=== PATIENT | male | born 1980 | race Caucasian/White ===

== ENCOUNTER 2018-07-14 18:00 | Emergency (ER) | payer OTHER ==
[~2018-07-14] VITALS: Ht 175.3 cm; Wt 83.0 kg
[2018-07-14 18:11] VITALS: BP 138/95; Ht 175.3 cm; Wt 83.0 kg
== END 2018-07-14 20:27 | disposition home or self-care (01) ==
LOC: ED 18:00
DX: M75.101 Unspecified rotator cuff tear or rupture of right shoulder, not specified as traumatic (principal)